=== PATIENT | female | born 1980 | race Caucasian/White ===

== ENCOUNTER 2016-10-03 19:22 | Emergency (ER) | payer OTHER ==
[~2016-10-03] VITALS: Ht 158.8 cm; Wt 118.4 kg
[~2016-10-03 19:22] MED LIST: CITA20TA4 PO; ULT50 PO
[2016-10-03 19:34] VITALS: TEMP 36.6; Ht 158.8 cm; Wt 118.4 kg
[2016-10-03] MEDS ORDERED: HYDR5SYP11 PO (19:58)
[2016-10-03] MEDS ORDERED: AZITTAB PO (19:58)
--- NOTE | 2016-10-03 19:59 | EMERGENCY ROOM VISIT NOTE ---
ED Visit Note First contact with patient: 19:41 CHIEF COMPLAINT: Cold symptoms HISTORY OF PRESENT ILLNESS: This is a 35-year-old female patient who presents to the emergency department ambulatory complaining of cough, sinus congestion, sore throat, pain in her chest only with coughing and frontal headache. The patient's symptoms started one week ago. The patient does not complain of a headache, abdominal pain, nausea, or vomiting. The patient has not had any shortness of breath. The patient does not know of anybody around them who has been sick. The patient has taken [id number] medications, Flonase, Mucinex. REVIEW OF SYSTEMS: A 10 system review of systems was completed with positives and pertinent negatives listed in the HPI. ALLERGIES: Penicillins MEDICATIONS: See nursing notes PMH: Patient denies SOCIAL HISTORY: The patient is a smoker. She lives locally PHYSICAL EXAM: Vital Signs: Reviewed Nurse's notes, temperature 36.6C orally, the remainder of the vital signs were normal. GENERAL: This is a 35-year-old female, in no acute distress, non toxic in appearance, nondiaphoretic, well-developed well-nourished. SKIN: The skin was without rashes, erythema, edema, or bruising. Capillary reflex less than 2 seconds. HEAD: Normocephalic atraumatic. EARS: External auditory canals clear, tympanic membrane pearly dodge without erythema or bulging EYES: Pupils equal round and reactive to light and accommodation. Conjunctivae without injection, sclerae without icterus. Extraocular movements intact. NOSE: Patent, turbinates inflamed with clear discharge. There is moderate frontal sinus tenderness. MOUTH: Mucous membranes moist. Tonsils are non-enlarged and not erythematous without exudate. Pharynx positive for postnasal drip. NECK: Supple without nuchal rigidity. There is no significant lymphadenopathy. HEART: Regular rate and rhythm without murmurs gallops or rubs. LUNGS: Clear to auscultation bilaterally without wheezes, rales or rhonchi. NEURO: Patient was alert and oriented to person place and time. ED COURSE: I examined the patient. the patient has had upper respiratory symptoms for the last 1 week. She has had sinus pressures, sinus congestion, sore throat, postnasal drip and cough. The patient has not had any shortness of breath or true chest pain. She is not having nuchal rigidity or meningismus to suggest meningitis. She has not had a fever. I discussed the possibility of obtaining a workup including laboratory studies and chest x-ray or trying antibiotics. The patient prefers to try medication first and she will return if she has any worsening symptoms. She also requested Hycodan cough syrup. She should follow-up with her family doctor next week. She should return with worsening symptoms. The patient was discharged home in good condition. Problem List Medical Problems: (1) Anxiety Status: Chronic (2) Bronchitis Status: Resolved (3) Bronchitis Status: Resolved (4) Bronchitis Status: Resolved (5) Sciatica Status: Chronic (6) Tobacco Use Disorder Status: Chronic (7) URI (upper respiratory infection) Status: Resolved (8) URI (upper respiratory infection) Status: Resolved (9) Viral illness Status: Resolved Surgical Problems: (1) History of hip surgery Status: Resolved (2) Hx of cholecystectomy Status: Resolved (3) S/P cholecystectomy Status: Resolved (4) Tubal ligation status Status: Resolved Current/Historical Medications Scheduled Azithromycin (Zithromax Z-Bentley), 1 PKT PO UD Citalopram Hydrobromide (Citalopram Hydrobromide), 1 TAB PO QPM Scheduled PRN Hydrocodone W/ Homatropine (Hycodan 5/1.5MG 5 Ml), 5 ML PO Q6 PRN for Cough Miscellaneous Medications Iud's (Paragard Intrauterine Intellectual Property Manager) Allergies Coded Allergies: Amoxicillin (Verified Allergy, Intermediate, HIVES, 10/03/16) PT STATES ALL "CILLINS" Penicillins (Verified Allergy, Unknown, HIVES, 10/03/16) PT STATES ALL "CILLINS" Vital Signs Date Time Temp Pulse Resp B/P Pulse Ox O2 Delivery O2 Flow Rate FiO2 10/03/16 20:13 80 18 128/51 98 10/03/16 19:34 36.6 82 18 132/85 97 Room Air Departure Information Impression Primary Impression: Upper respiratory tract infection Dispostion Home / Self-Care Condition GOOD Prescriptions Hydrocodone W/ Homatropine (HYCODAN 5/1.5MG 5 ML) 1 Syp Syp 5 ML PO Q6 Y for Cough for 3 Days, #60 ML Prov: Rowan Marvin PA-C 10/03/16 Azithromycin (ZITHROMAX Z-BENTLEY) 250 Mg Tab 1 PKT PO UD, #1 PKT Prov: Rowan Marvin PA-C 10/03/16 Referrals Pro,Madhu Bustillo M.D. (PCP) Patient Instructions Bronchitis Acute, My [facility] Additional Instructions Zithromax as prescribed, until finished Hycodan as prescribed, as needed for cough; do not drive when taking the Hycodan Follow up with your family doctor next week if no improvement Return to the emergency department with worsening symptoms Problem Qualifiers Primary Impression: Upper respiratory tract infection
[2016-10-03 20:13] VITALS: BP 128/51; PULSE 80; O2SAT 98
[2017-01-16] MEDS ORDERED: IUD'IUD INT UTER (12:04)
== END 2016-10-03 20:15 | disposition home or self-care (01) ==
LOC: C.EDB 19:24 → C.EDD 20:15
DX: J06.9 Acute upper respiratory infection, unspecified (principal); F17.200 Nicotine dependence, unspecified, uncomplicated; F41.9 Anxiety disorder, unspecified; M54.40 Lumbago with sciatica, unspecified side

== ENCOUNTER 2016-11-24 22:00 | Emergency (ER) | payer OTHER ==
[~2016-11-24] VITALS: Ht 158.8 cm; Wt 117.0 kg
[~2016-11-24 22:00] MED LIST changes: -ULT50 PO
[2016-11-24 22:09] VITALS: BP 129/89; PULSE 96; TEMP 36.6; O2SAT 97; Ht 158.8 cm; Wt 117.0 kg
[2016-11-24] MEDS ORDERED: hydrOXYzine HCL 25 MG TAB PO STA ×2 (22:40)
--- NOTE | 2016-11-24 22:42 | EMERGENCY ROOM VISIT NOTE ---
History Report prepared by Raymon: Pacheco Marcos Under the Supervision of: Dr. Madhu Villarreal D.O. First contact with patient: 22:30 Chief Complaint: ANXIETY Stated Complaint: ANXIETY ATTACK History of Present Illness The patient is a 35 year old female who presents to the Emergency Room with complaints of worsening anxiety that has been increasing over the last week. Per the patient's the patient has struggled with anxiety intermittently over the past four years. She is currently taking Ativan and Celexa. She is currently taking 0.5 of Ativan two times per day. She states that she often tries to avoid taking her Ativan and Celexa at the same time, as she becomes tired and drowsy. She also had her Celexa dosage increased yesterday by the Physician Tie Binder at Dr. Bojorquez's office. Per the ED nursing staff the patient has been experiencing increased anxiety due to legal issues at home. The patient states that the tenants that live in the apartment above her have been attempting to get her children into legal trouble. This stress has caused the worsening of her anxiety. She adamantly denies any suicidal thoughts or ideation , and claims that she feels safe at home. She does not have any guns at home, and has not consumed any alcohol this evening. She has never been admitted as an inpatient for psychiatric concerns in the past. The patient is scheduled to have a follow-up with a therapist on Sunday of next week, three days from this visit. Source of History: patient, spouse/significant other Onset: One week [employer] DEVEL[employer] Position: other (Psychiatric ) Quality: other (Anxiety ) Timing: worsening Modifying Factors (Worsening): other (Stress at home) Note: Denies suicidal ideations. Review of Systems See HPI for pertinent positives & negatives. A total of 10 systems reviewed and were otherwise negative. Past Medical & Surgical Medical Problems: (1) Anxiety (2) Bronchitis (3) Bronchitis (4) Bronchitis (5) Sciatica (6) Tobacco Use Disorder (7) URI (upper respiratory infection) (8) URI (upper respiratory infection) (9) Viral illness Surgical Problems: (1) History of hip surgery (2) Hx of cholecystectomy (3) S/P cholecystectomy (4) Tubal ligation status Family History Cancer Diabetes mellitus Gallbladder disease Heart disease Hypertension Kidney disease Kidney stones Lung disease Social History Smoking Status: Current Every Day Smoker Alcohol Use: none Drug Use: none Marital Status: in relationship Housing Status: lives with family Occupation Status: employed Current/Historical Medications Scheduled Citalopram Hydrobromide (Citalopram Hydrobromide), 1 TAB PO QPM Hydroxyzine Pamoate (Vistaril), 1 CAP PO Q8 Miscellaneous Medications Iud's (Paragard Intrauterine Mental Health Aides Teacher) Allergies Coded Allergies: Amoxicillin (Verified Allergy, Intermediate, HIVES, 10/03/16) PT STATES ALL "CILLINS" Penicillins (Verified Allergy, Unknown, HIVES, 10/03/16) PT STATES ALL "CILLINS" Physical Exam Vital Signs Date Time Temp Pulse Resp B/P (MAP) Pulse Ox O2 Delivery O2 Flow Rate FiO2 11/24/16 22:09 36.6 96 18 129/89 97 Room Air Physical Exam GENERAL: Patient is awake, alert, and mildly anxious. Comfortable, and in no pain. EYES: The conjunctivae are clear. The pupils are round and reactive. EARS, NOSE, MOUTH AND THROAT: The nose is without any evidence of any deformity. Mucous membranes are moist tongue is midline NECK: The neck is nontender and supple. RESPIRATORY: Normal respiratory effort is noted there is no evidence of wheezing rhonchi or rales CARDIOVASCULAR: Regular rate and rhythm noted there no murmurs rubs or gallops normal S1 normal S2 GASTROINTESTINAL: The abdomen is soft. Bowel sounds are present in all quadrants. Abdomen is nontender MUSCULOSKELETAL/EXTREMITIES: There is no evidence of gross deformity full range of motion is noted in the hips and shoulders SKIN: There is no obvious evidence of any rash. There are no petechiae, pallor or cyanosis noted. NEUROLOGIC: Patient is awake alert and oriented x3 strength is symmetric patellar reflexes are 2+ bilaterally PSYCH: Affect was normal. Currently denying any suicidal or homicidal ideation. Medical Decision & Procedures Medications Administered Medications (Trade) Dose Ordered Sig/Irvin Route Start Time Stop Time Status Last Admin Dose Admin Hydroxyzine HCl (Vistaril Tab) 25 mg NOW STAT PO 11/24/16 22:40 11/24/16 22:41 DC 11/24/16 22:50 25 MG Hydroxyzine HCl (Vistaril Tab) 25 mg NOW STAT PO 11/24/16 22:40 11/24/16 22:41 DC 11/24/16 22:50 25 MG ED Course 2231: The patient was evaluated in room A6. A complete history and physical examination were performed. 2239: Ordered Vistaril 25 mg PO. Medical Decision Blood pressure screening: Patient was found to have normal blood pressure on screening and does not require follow-up. Medication Reconciliation: I attest that I have personally reviewed the patient' s current medications list. Differential diagnosis: Etiologies such as mood disorder, infection, hypoglycemia, electrolyte abnormalities, cardiac sources, intracerebral event, toxicologic, neurologic, as well as others were entertained. The patient is a 35-year-old female who presented to the emergency department for an evaluation of anxiety. The patient has chronic anxiety and is currently being medicated and treated by her primary care physician. She has a follow-up appointment scheduled with a therapist this Sunday. The patient did not have any suicidal or homicidal ideation and she did not feel that she required admission at this time. She was given medications for anxiety in the emergency department. She was reevaluated by the mental health senior case manager. She was encouraged to continue all medications as prescribed and follow-up with her therapist as scheduled. She was also encouraged to call crisis or return to emergency department immediately if symptoms worsen or if need arises. Impression Primary Impression: Anxiety Scribe Attestation The scribe's documentation has been prepared under my direction and personally reviewed by me in its entirety. I confirm that the note above accurately reflects all work, treatment, procedures, and medical decision making performed by me. Departure Information Prescriptions Hydroxyzine Pamoate (VISTARIL) 25 Mg Cap 1 CAP PO Q8 for Anxiety/Agitation for 30 Days, #25 CAP Prov: Madhu Villarreal, 11/24/16 Referrals Madhu Bojorquez M.D. (PCP) Forms HOME CARE DOCUMENTATION FORM, IMPORTANT VISIT INFORMATION Patient Instructions My [facility] Additional Instructions Continue all medications as prescribed. Call crisis or return to the emergency Department immediately if symptoms change worsen or the need arises.
[2016-11-24] MEDS ORDERED: EMPTY 8 DRAM VIAL ONE (22:44)
[2016-11-24] MEDS ORDERED: HYDR25CA PO (22:46)
[2017-01-16] MEDS ORDERED: IUD'IUD INT UTER (12:04)
== END 2016-11-24 23:24 | disposition home or self-care (01) ==
LOC: C.EDB 22:01 → C.EDA 23:24
DX: F41.9 Anxiety disorder, unspecified (principal); F17.200 Nicotine dependence, unspecified, uncomplicated; Z90.49 Acquired absence of other specified parts of digestive tract; Z98.51 Tubal ligation status; Z98.890 Other specified postprocedural states; Z83.3 Family history of diabetes mellitus; Z82.49 Family history of ischemic heart disease and other diseases of the circulatory system; Z84.1 Family history of disorders of kidney and ureter; Z79.899 Other long term (current) drug therapy

== ENCOUNTER 2017-01-16 15:18 | Emergency (ER) | payer OTHER ==
[~2017-01-16] VITALS: Ht 158.8 cm; Wt 117.1 kg
[~2017-01-16 15:18] MED LIST changes: +IUD'IUD INT UTER
[2017-01-16 15:21] VITALS: TEMP 36.6; Ht 158.8 cm; Wt 117.1 kg
[2017-01-16] MEDS ORDERED: VST25HP PO (15:51)
[2017-01-16] MEDS ORDERED: CITA40TA4 PO (15:51)
[2017-01-16] MEDS ORDERED: ATV5X PO (15:51)
--- NOTE | 2017-01-16 15:57 | DIAGNOSTIC IMAGING REPORT ---
LEFT FOOT 3 VIEWS HISTORY: L foot pain COMPARISON: None. FINDINGS: There is no fracture or dislocation. Soft tissues are unremarkable. No radiopaque foreign bodies. Plantar heel spur. IMPRESSION: No fractures. Electronically signed by: Charan Brewer M.D. 01/16/2017 3:56 PM Dictated Date/Time: 01/16/2017 3:55 PM
--- NOTE | 2017-01-16 16:15 | EMERGENCY ROOM VISIT NOTE ---
History First contact with patient: 15:23 Chief Complaint: FOOT PAIN Stated Complaint: POSSIBLE BROKEN FOOT History of Present Illness The patient is a 36 year old female who presents to the Emergency Room with complaints of pain on the top of her left foot for the past week. The patient denies any known injury to the foot. The patient reports that she has been spending more time on her feet over the past few weeks. She denies any pain radiating into the ankle or leg. She also denies any recent back pain. She denies paresthesias or numbness of the foot or toes, and rates her discomfort a 6 out of 10 with weightbearing. Review of Systems 10 system review was performed and was negative except for pertinent positives and negatives as indicated in history of present illness Past Medical/Surgical History Medical Problems: (1) Anxiety (2) Bronchitis (3) Bronchitis (4) Bronchitis (5) Sciatica (6) Tobacco Use Disorder (7) URI (upper respiratory infection) (8) URI (upper respiratory infection) (9) Viral illness Surgical Problems: (1) History of hip surgery (2) Hx of cholecystectomy (3) S/P cholecystectomy (4) Tubal ligation status Family History Cancer Diabetes mellitus Gallbladder disease Heart disease Hypertension Kidney disease Kidney stones Lung disease Social History Smoking Status: Current Every Day Smoker Alcohol Use: none Drug Use: none Marital Status: in relationship Housing Status: lives with family Occupation Status: employed Current/Historical Medications Scheduled Citalopram (Citalopram Hydrobromide), 40 MG PO DAILY Iud's (Paragard Intrauterine Brake Lining Finisher Asbestos), 1 EA INT UTER UD Scheduled PRN Hydroxyzine HCl (Hydroxyzine Pamoate), 25 MG PO Q8 PRN for Anxiety/Agitation Lorazepam (Lorazepam), 0.5 MG PO BID PRN for Anxiety Physical Exam Vital Signs Date Time Temp Pulse Resp B/P (MAP) Pulse Ox O2 Delivery O2 Flow Rate FiO2 01/16/17 15:21 36.6 84 16 113/76 95 Room Air Physical Exam CONSTITUTIONAL: Healthy and well nourished. Alert and oriented X 3 with positive affect. HEENT: Normocephalic, atraumatic. Pupils equal, round and reactive. NECK: Full active range of motion without discomfort. MUSCULOSKELETAL: Examination of the left foot shows minimal edema over the distal second and third metatarsal region. Faint ecchymosis is noted. The patient has no tenderness to palpation over the plantar metatarsals. She has no focal tenderness over the ankle, calcaneus or Achilles tendon. No significant worsening pain with subtalar motion. No tenderness to palpation of the phalanges. Pedal pulses are intact. INTEGUMENTARY: No rash or other significant dermatologic conditions noted. NEUROLOGIC: Left foot and toes are sensory intact. Medical Decision & Procedures ER Provider Diagnostic Interpretation: My interpretation of left foot x-rays does not show any obvious degenerative changes, fractures, dislocations or radiopaque foreign bodies. Radiologist report is as follows: LEFT FOOT 3 VIEWS HISTORY: L foot pain COMPARISON: None. FINDINGS: There is no fracture or dislocation. Soft tissues are unremarkable. No radiopaque foreign bodies. Plantar heel spur. IMPRESSION: No fractures. ED Course Patient history and physical exam were performed. Nurse's notes were reviewed. Vital signs were reviewed and were normal. X-rays of the left foot were normal. The patient was advised that her clinical exam is most consistent with a strain. Crutches and an ice pack or dispensed. The patient was encouraged to intermittently apply ice and elevate the foot for swelling and pain. Ibuprofen or Tylenol as needed for additional pain relief. The patient was instructed to follow-up with orthopedics if symptoms have not improved within the next week. The patient was happy with plan of care, voiced understanding of all discharge instructions, and denied any significant pain at the conclusion of my exam. Medical Decision Medication Reconcilliation Current Medication List: was personally reviewed by me Blood Pressure Screening Patient's blood pressure: Normal blood pressure Impression Primary Impression: Strain of left foot Departure Information Referrals Pro,Madhu Bustillo M.D. (PCP) Patient Instructions My [facility] Problem Qualifiers Primary Impression: Strain of left foot Encounter type: initial encounter Qualified Codes: S96.912A - Strain of unspecified muscle and tendon at ankle and foot level, left foot, initial encounter
[2017-01-16 16:23] VITALS: BP 120/86; PULSE 85; O2SAT 96
== END 2017-01-16 16:23 | disposition home or self-care (01) ==
LOC: C.EDB 15:19 → C.EDD 16:23
DX: S96.912A Strain of unspecified muscle and tendon at ankle and foot level, left foot, initial encounter (principal); X58.XXXA Exposure to other specified factors, initial encounter; F41.9 Anxiety disorder, unspecified; F17.210 Nicotine dependence, cigarettes, uncomplicated; Z90.49 Acquired absence of other specified parts of digestive tract; Z98.51 Tubal ligation status; Z80.9 Family history of malignant neoplasm, unspecified; Z83.3 Family history of diabetes mellitus; Z82.49 Family history of ischemic heart disease and other diseases of the circulatory system; Z84.1 Family history of disorders of kidney and ureter; Z79.899 Other long term (current) drug therapy

== ENCOUNTER → 2017-02-28 | Outpatient (CLI) | payer OTHER ==
[~2017-02-28] MED LIST changes: +ATV5X PO; -CITA20TA4 PO; +CITA40TA4 PO; +VST25HP PO
[2017-02-28 15:31] LABS: BASO % 0.3 %; BASO ABS # 0.04 K/uL (0-0.2); COMPLETE YES; EOS % 0.5 %; HEMATOCRIT 45.2 % (37-47); IG% 0.3 %; LYMPH % 17.5 %; LYMPH ABS # 2.58 K/uL (1.2-3.4); MEAN CELL VOLUME 90.4 fL (80-100); MEAN CORPUSCULAR HEMOGLOBIN 30.6 pg (25-34); MEAN CORPUSCULAR HGB CONC 33.8 g/dl (32-36); MEAN PLATELET VOLUME 11.5 fL (7.4-10.4); MONO % 8.1 %; NEUT % 73.3 %; PLATELET COUNT 294 K/uL (130-400); WHITE BLOOD COUNT 14.71 K/uL (4.8-10.8)
[2017-02-28 16:13] LABS: URINE APPEARANCE CLEAR (CLEAR); URINE BILIRUBIN NEG (NEG); URINE COLOR YELLOW; URINE NITRITE NEG (NEG); URINE SPECIFIC GRAVITY 1.016 (1.000-1.030); UROBILINOGEN NEG (NEG)
[2017-02-28 16:34] LABS: MANUAL MICROSCOPIC REQUIRED? NO; REVIEW REQ? NO
== END | disposition home or self-care (01) ==
LOC: C.LAB1850 13:50
PROVIDERS: ATTEND Physician Assistant
DX: R10.2 Pelvic and perineal pain (principal)

== ENCOUNTER 2017-05-31 01:07 | Emergency (ER) | payer OTHER ==
[~2017-05-31] VITALS: Ht 158.8 cm; Wt 117.2 kg
[2017-05-31 01:10] VITALS: TEMP 36.5; Ht 158.8 cm; Wt 117.2 kg
[2017-05-31] MEDS ORDERED: KETOROLAC TROMETHAMINE 30 MG/ML VIAL IV STA (01:21)
[2017-05-31] MEDS ORDERED: PROCHLORPERAZINE 5 MG/ML 2 ML VIAL IV STA (01:21)
[2017-05-31] MEDS ORDERED: DiphenhydrAMINE HCL 50 MG/ML VIAL IV STA (01:21)
[2017-05-31 01:37] LABS: BASO % 0.3 %; BASO ABS # 0.03 K/uL (0-0.2); COMPLETE YES; HEMATOCRIT 42.2 % (37-47); IG% 0.2 %; LYMPH % 35.7 %; LYMPH ABS # 3.22 K/uL (1.2-3.4); MEAN CELL VOLUME 89.8 fL (80-100); MEAN CORPUSCULAR HEMOGLOBIN 30.9 pg (25-34); MEAN CORPUSCULAR HGB CONC 34.4 g/dl (32-36); MEAN PLATELET VOLUME 10.6 fL (7.4-10.4); MONO % 8.6 %; NEUT % 54.2 %; PLATELET COUNT 241 K/uL (130-400); WHITE BLOOD COUNT 9.03 K/uL (4.8-10.8)
[2017-05-31] MEDS ORDERED: CHN/1 PO (01:40)
[2017-05-31 01:58] LABS: BUN/CREATININE RATIO 15.5 (10-20); CALCIUM 8.9 mg/dl (8.5-10.1); CREATININE 0.73 mg/dl (0.60-1.20); POTASSIUM 3.8 mmol/L (3.5-5.1)
[2017-05-31 02:52] VITALS: BP 101/61; PULSE 61; O2SAT 97
--- NOTE | 2017-05-31 08:06 | DIAGNOSTIC IMAGING REPORT ---
HEAD WITHOUT CONTRAST (CT) CLINICAL HISTORY: 36 years-old Female presenting with Atypical migraine, pain along the left side of the head radiating into the. TECHNIQUE: Multidetector CT imaging of the head was performed without the use of intravenous contrast. IV contrast: None. A dose lowering technique was used consistent with the principles of ALARA (as low as reasonably achievable). COMPARISON: 11/18/2014. CT DOSE (mGy.cm): The estimated cumulative dose is 537.48 mGy.cm. FINDINGS: Barking Machine Feeder topogram: Unremarkable. Ventricles and sulci normal in size. Brain parenchyma normal in appearance with preserved dodge-white differentiation. No mass effect or midline shift. No hemorrhage or acute territorial infarct. No extra-axial fluid collection. Paranasal sinuses and mastoid air cells clear. Calvarium intact. IMPRESSION: 1. No acute intracranial abnormality. Electronically signed by: Mahamed Navarro M.D. 05/31/2017 8:05 AM Dictated Date/Time: 05/31/2017 7:09 AM
--- NOTE | 2017-05-31 23:27 | EMERGENCY ROOM VISIT NOTE ---
History First contact with patient: 01:15 Chief Complaint: HEADACHE Stated Complaint: MIGRAINE-LT SIDE,LT EYE,NAUSEA,DIZZY History of Present Illness The patient is a 36 year old female who presents to the Emergency Room with complaints of headache symptoms that began worsening over the course of the day. The patient has a history of migraine headaches, however this is atypical from her normal migraine. She states today she has some of sided head pain that radiates into her left eye. She is nauseated without vomiting. She has not had injury or trauma. No fever or chills. She did try [id number] analgesics without relief at home. This is not the worst headache of her life. She rates her discomfort an 8/10. Review of Systems More than 10 systems were reviewed and otherwise negative with the exception of history of present illness. Past Medical/Surgical History Medical Problems: (1) Anxiety (2) Bronchitis (3) Bronchitis (4) Bronchitis (5) Sciatica (6) Tobacco Use Disorder (7) URI (upper respiratory infection) (8) URI (upper respiratory infection) (9) Viral illness Surgical Problems: (1) History of hip surgery (2) Hx of cholecystectomy (3) S/P cholecystectomy (4) Tubal ligation status Family History Cancer Diabetes mellitus Gallbladder disease Heart disease Hypertension Kidney disease Kidney stones Lung disease Social History Smoking Status: Former Smoker Alcohol Use: none Drug Use: none Marital Status: in relationship Housing Status: lives with family Occupation Status: employed Current/Historical Medications Scheduled Citalopram (Citalopram Hydrobromide), 40 MG PO DAILY Iud's (Paragard Intrauterine Pharmacy Messenger), 1 INT UTER UD Varenicline (Chantix), 1 MG PO BID Physical Exam Vital Signs Date Time Temp Pulse Resp B/P (MAP) Pulse Ox O2 Delivery O2 Flow Rate FiO2 05/31/17 02:52 61 17 101/61 97 Room Air 05/31/17 01:52 68 18 121/53 95 Room Air 05/31/17 01:10 36.5 71 20 121/86 96 Room Air Physical Exam VITALS: Vitals are noted on the nurse's note and reviewed by myself. Vital signs stable. GENERAL: Well-developed, well-nourished, female, who is in no acute distress and resting comfortably. Patient is cooperative with the examination. HEAD: Normocephalic atraumatic. EARS: External ear normal. External auditory canals clear, tympanic membranes pearly dodge without erythema or effusion bilaterally. EYES: Pupils equal round and reactive to light and accommodation. Conjunctivae without injection, sclerae without icterus. Extraocular movements intact. NOSE: Patent, turbinates without inflammation or discharge. MOUTH: Mucous membranes moist. Tonsils are not enlarged. Pharynx without erythema, blood, or exudate. Uvula midline. Airway patent. NECK: Supple without nuchal rigidity. No lymphadenopathy. No thyromegaly. Cervical spine is nontender. No meningismus HEART: Regular rate and rhythm without murmurs gallops or rubs. LUNGS: Clear to auscultation bilaterally without wheezes, rales or rhonchi. No retractions or accessory muscle use. ABDOMEN: Positive normal bowel sounds x 4. Soft, nontender, without masses or organomegaly. No guarding or rebound tenderness. Medical Decision & Procedures ER Provider Diagnostic Interpretation: HEAD WITHOUT CONTRAST (CT) CLINICAL HISTORY: 36 years-old Female presenting with Atypical migraine, pain along the left side of the head radiating into the. TECHNIQUE: Multidetector CT imaging of the head was performed without the use of intravenous contrast. IV contrast: None. A dose lowering technique was used consistent with the principles of ALARA (as low as reasonably achievable). COMPARISON: 11/18/2014. CT DOSE (mGy.cm): The estimated cumulative dose is 537.48 mGy.cm. FINDINGS: Stab Setter And Driller topogram: Unremarkable. Ventricles and sulci normal in size. Brain parenchyma normal in appearance with preserved dodge-white differentiation. No mass effect or midline shift. No hemorrhage or acute territorial infarct. No extra-axial fluid collection. Paranasal sinuses and mastoid air cells clear. Calvarium intact. IMPRESSION: 1. No acute intracranial abnormality. Laboratory Results 05/31/17 01:25 Red Blood Count 4.70, Mean Corpuscular Volume 89.8, Mean Corpuscular Hemoglobin 30.9, Mean Corpuscular Hemoglobin Concent 34.4, Mean Platelet Volume 10.6, Neutrophils (%) (Auto) 54.2, Lymphocytes (%) (Auto) 35.7, Monocytes (%) (Auto) 8.6, Eosinophils (%) (Auto) 1.0, Basophils (%) (Auto) 0.3, Neutrophils # (Auto) 4.89, Lymphocytes # (Auto) 3.22, Monocytes # (Auto) 0.78, Eosinophils # (Auto) 0.09, Basophils # (Auto) 0.03 05/31/17 01:25 Test 05/31/17 01:25 White Blood Count 9.03 K/uL (4.8-10.8) Red Blood Count 4.70 M/uL (4.2-5.4) Hemoglobin 14.5 g/dL (12.0-16.0) Hematocrit 42.2 % (37-47) Mean Corpuscular Volume 89.8 fL (80-100) Mean Corpuscular Hemoglobin 30.9 pg (25-34) Mean Corpuscular Hemoglobin Concent 34.4 g/dl (32-36) Platelet Count 241 K/uL (130-400) Mean Platelet Volume 10.6 fL (7.4-10.4) Neutrophils (%) (Auto) 54.2 % Lymphocytes (%) (Auto) 35.7 % Monocytes (%) (Auto) 8.6 % Eosinophils (%) (Auto) 1.0 % Basophils (%) (Auto) 0.3 % Neutrophils # (Auto) 4.89 K/uL (1.4-6.5) Lymphocytes # (Auto) 3.22 K/uL (1.2-3.4) Monocytes # (Auto) 0.78 K/uL (0.11-0.59) Eosinophils # (Auto) 0.09 K/uL (0-0.5) Basophils # (Auto) 0.03 K/uL (0-0.2) RDW Standard Deviation 42.3 fL (36.4-46.3) RDW Coefficient of Variation 12.9 % (11.5-14.5) Immature Granulocyte % (Auto) 0.2 % Immature Granulocyte # (Auto) 0.02 K/uL (0.00-0.02) Anion Gap 5.0 mmol/L (3-11) Est Creatinine Clear Calc Drug Dose 128.1 ml/min Estimated GFR () 121.1 Estimated GFR (Non- 104.5 BUN/Creatinine Ratio 15.5 (10-20) Calcium Level 8.9 mg/dl (8.5-10.1) Total Bilirubin 0.3 mg/dl (0.2-1) Aspartate Amino Transf (AST/SGOT) 12 U/L (15-37) Alanine Aminotransferase (ALT/SGPT) 29 U/L (12-78) Alkaline Phosphatase 87 U/L (45-117) Total Protein 7.3 gm/dl (6.4-8.2) Albumin 3.6 gm/dl (3.4-5.0) Globulin 3.7 gm/dl (2.5-4.0) Albumin/Globulin Ratio 1.0 (0.9-2) Medications Administered Medications (Trade) Dose Ordered Sig/Irvin Route Start Time Stop Time Status Last Admin Dose Admin Diphenhydramine HCl (Benadryl Inj) 50 mg NOW STAT IV 05/31/17 01:21 05/31/17 01:23 DC 05/31/17 01:33 50 MG Prochlorperazine Edisylate (Compazine Inj) 10 mg NOW STAT IV 05/31/17 01:21 05/31/17 01:23 DC 05/31/17 01:36 10 MG Ketorolac Tromethamine (Toradol Inj) 30 mg NOW STAT IV 05/31/17 01:21 05/31/17 01:23 DC 05/31/17 01:33 30 MG ED Course Physical exam and history were performed. Nursing notes, EMR, and Medication List were personally reviewed. Patient appears to have headache symptoms for the past one day. She does not appear toxic, but appears uncomfortable. She was given 30 mg IV Toradol, 10 mg IV Compazine, and 50 mg IV Benadryl. She was sent to CAT scan as her symptoms are atypical of her normal migraine, and she has not had imaging in several years. The patient's blood work is as above and was reviewed. She does not have a significant elevated white blood cell count, gross anemia, bandemia, or significant electric let imbalance. Her CT scan is as above and without acute findings. On reevaluation the patient was sleeping comfortably in her emergency department aid. Her discomfort essentially completely resolved with medications and dressed here in the department. She does seem stable for discharge home. The patient needs to follow with neurology and her primary care physician. She'll be discharged home under the care of a male blow mold technician who is acting as the local hazmat driver today. The patient was pleased with this plan and rated her discomfort a 0/10 at departure. The chart was completed utilizing [employer] Speech Voice Recognition Software. Grammatical errors, random word insertions, pronoun errors, and incomplete sentences are an occasional consequence of this system due to software limitations, ambient noise, and hardware issues. Any formal questions or concerns about the content, text, or information contained within the body of this dictation should be directly addressed to the provider for clarification. . Medical Decision The differential diagnosis includes, but is not limited to: acute intracranial bleed, meningitis, encephalitis, mass or mass effect, sinusitis, infection, tumor, headache, temporal arteritis and carbon monoxide exposure, and migraine. Impression Primary Impression: Headache Departure Information Dispostion Home / Self-Care Condition GOOD Referrals Pro,Madhu Bustillo M.D. (PCP) Forms HOME CARE DOCUMENTATION FORM, IMPORTANT VISIT INFORMATION Patient Instructions My [facility] Additional Instructions You were seen and evaluated today on an emergency basis only. This is not a substitute for, or an effort to provide, complete comprehensive medical care. It is not possible to recognize and treat all injuries or illnesses in a single emergency department visit. For this reason it is recommended that you followup with your primary care physician or neurologist this week for ongoing care and evaluation. DO NOT drive, drink alcohol, operate machinery, or perform dangerous activities today. You were given medications in the ER that can affect your ability to safely function or operate a vehicle. Rest today in a quiet, peaceful, dark environment and get a full 8-10 hrs of sleep tonight. Avoid loud noises, smoke/smoking, alcohol, bright lights, stress, or physical exertion today to minimize the chance the headache may return. Continue current medications. Ibuprofen(Motrin, Advil) may be used for fever or pain. Use 600mg every six hours as needed. Take with food. Avoid using more than 2400mg in a 24 hour period. Do not use 2400mg per day for more than three consecutive days without physician direction. Prolonged inappropriate use can lead to stomach upset or ulcers. (AND/OR) Acetaminophen(Tylenol) may be used for fever or pain. Use 1000mg every six hours as needed. Avoid using more than 4000mg in a 24 hour period. Return to the ER for passing out, worsening headache, vision problems, neck stiffness/pain, fevers, vomiting, worsening of your condition, or as needed.
== END 2017-05-31 03:15 | disposition home or self-care (01) ==
LOC: C.EDB 01:08
DX: R51 Headache (principal); F41.9 Anxiety disorder, unspecified; Z87.891 Personal history of nicotine dependence; Z90.49 Acquired absence of other specified parts of digestive tract; Z98.51 Tubal ligation status; Z80.9 Family history of malignant neoplasm, unspecified; Z83.3 Family history of diabetes mellitus; Z82.49 Family history of ischemic heart disease and other diseases of the circulatory system; Z87.442 Personal history of urinary calculi; Z79.899 Other long term (current) drug therapy

== ENCOUNTER 2017-07-09 20:40 | Emergency (ER) | payer OTHER ==
[~2017-07-09] VITALS: Ht 160 cm; Wt 105.0 kg
[~2017-07-09 20:40] MED LIST changes: -ATV5X PO; +CHN/1 PO; -VST25HP PO
[2017-07-09 20:48] VITALS: TEMP 36.6; Ht 160 cm; Wt 105.0 kg
--- NOTE | 2017-07-09 21:35 | DIAGNOSTIC IMAGING REPORT ---
L KNEE 3 VIEWS CLINICAL HISTORY: left knee pain pain COMPARISON: None. DISCUSSION: The bones and joint spaces appear intact. There is no evidence of fracture, dislocation or bony disease. There is no evidence for soft tissue swelling. IMPRESSION: Negative study. The above report was generated using voice recognition software. It may contain grammatical, syntax or spelling errors. Electronically signed by: Bandar Paiz M.D. 07/09/2017 9:34 PM Dictated Date/Time: 07/09/2017 9:33 PM
[2017-07-09] MEDS ORDERED: ATV5X PO (21:39)
[2017-07-09] MEDS ORDERED: FLX/5 PO (21:39)
[2017-07-09 22:15] VITALS: BP 127/88; PULSE 99; O2SAT 97
--- NOTE | 2017-07-10 21:26 | EMERGENCY ROOM VISIT NOTE ---
ED Visit Note First contact with patient: 21:09 CHIEF COMPLAINT: knee pain HISTORY OF PRESENT ILLNESS: This 36-year-old female patient presents to the emergency department after sustaining an injury to the left knee tonight. The patient states that she was dancing with her children when she felt a popping sensation in the left knee. The patient denies any other injuries besides their knee. The patient no swelling or bruising. There is pain diffusely. They rate the pain as dull and 6/10. The patient states they are able to walk on it. No numbness or tingling. No previous injuries to this knee. No ankle, foot or hip pain. REVIEW OF SYSTEMS: A 6 system review of systems was completed with positives and pertinent negatives listed in the HPI. ALLERGIES: Penicillin MEDICATIONS: See EMR PMH: No pertinent chronic medical disease SOCIAL HISTORY: Lives at home with family PHYSICAL EXAM: Vital Signs: Reviewed Nurse's notes, vital signs stable. GENERAL : Female, no acute distress, but appears in pain, well-developed, well- nourished. MENTAL STATUS: Alert, oriented to person place and time, and cooperative. MUSCULOSKELETAL: The left knee is mildly swollen. There is no ecchymosis. There is no joint effusion present. The patient is tender anteriorly. There is no joint line tenderness. The patella does not subluxate. Range of motion is normal. Strength of the quads and hamstrings is 5/5. Anne' s is negative. Fan's and Anterior Drawer tests are negative. There is no laxity with varus and valgus stressing. The foot and toes are warm and well- perfused. Dorsalis pedis pulse 2+. Sensation to pain and light touch is intact. Capillary refill less than 2 seconds. L KNEE 3 VIEWS CLINICAL HISTORY: left knee pain pain COMPARISON: None. DISCUSSION: The bones and joint spaces appear intact. There is no evidence of fracture, dislocation or bony disease. There is no evidence for soft tissue swelling. IMPRESSION: Negative study. EMERGENCY DEPARTMENT COURSE: Physical exam and history were performed. Nursing notes and EMR were reviewed. The patient appears to have injured her left knee at home. X-rays were obtained and read by myself and radiology showing no acute fracture or dislocation. The patient was placed in an Saran wrap and given crutches. She was provided information for conservative management and asked to follow with her primary care physician or orthopedist if symptoms persist. She was otherwise invited back to the ER with any new, worsening, or concerning symptoms. Problem List Medical Problems: (1) Anxiety Status: Chronic (2) Bronchitis Status: Resolved (3) Bronchitis Status: Resolved (4) Bronchitis Status: Resolved (5) Sciatica Status: Chronic (6) Tobacco Use Disorder Status: Chronic (7) URI (upper respiratory infection) Status: Resolved (8) URI (upper respiratory infection) Status: Resolved (9) Viral illness Status: Resolved Surgical Problems: (1) History of hip surgery Status: Resolved (2) Hx of cholecystectomy Status: Resolved (3) S/P cholecystectomy Status: Resolved (4) Tubal ligation status Status: Resolved Current/Historical Medications Scheduled Citalopram (Citalopram Hydrobromide), 40 MG PO DAILY Iud's (Paragard Intrauterine Supervisor [employer]), 1 EA INT UTER UD Varenicline (Chantix), 1 MG PO BID Scheduled PRN Cyclobenzaprine HCl (Cyclobenzaprine HCl), 5 MG PO HS PRN for Muscle Spasm Lorazepam (Lorazepam), 0.5 MG PO BID PRN for Anxiety Allergies Coded Allergies: Amoxicillin (Verified Allergy, Intermediate, HIVES, 10/03/16) PT STATES ALL "CILLINS" Penicillins (Verified Allergy, Unknown, HIVES, 10/03/16) PT STATES ALL "CILLINS" Vital Signs Date Time Temp Pulse Resp B/P (MAP) Pulse Ox O2 Delivery O2 Flow Rate FiO2 07/09/17 22:15 99 16 127/88 97 07/09/17 20:48 36.6 99 16 127/88 97 Room Air Departure Information Impression Primary Impression: Injury of left knee Dispostion Home / Self-Care Condition GOOD Forms HOME CARE DOCUMENTATION FORM, IMPORTANT VISIT INFORMATION Patient Instructions My [facility] Additional Instructions You were seen and evaluated today on an emergency basis only. This is not a substitute for, or an effort to provide, complete comprehensive medical care. It is not possible to recognize and treat all injuries or illnesses in a single emergency department visit. For this reason it is recommended that you followup with your primary care physician in the next week if symptoms persist. Use your crutches the next 2-3 days For baseline pain relief you may alternate ibuprofen and acetaminophen every 4 hours for pain control. Take 600 mg ibuprofen (Advil) and then 4 hours later take 1000 mg acetaminophen (Tylenol). Do not take more than 3000 mg acetaminophen in a single day. You are welcome to return to the emergency department anytime with new, worsening, or concerning symptoms.
== END 2017-07-09 22:15 | disposition home or self-care (01) ==
LOC: C.EDB 20:41 → C.EDD 22:15
DX: S89.92XA Unspecified injury of left lower leg, initial encounter (principal); Y93.41 Activity, dancing; Z87.891 Personal history of nicotine dependence

== ENCOUNTER 2017-09-11 09:44 | Emergency (ER) | payer OTHER ==
[~2017-09-11] VITALS: Ht 158.8 cm; Wt 119.0 kg
[~2017-09-11 09:44] MED LIST changes: +ATV5X PO; +FLX/5 PO
[2017-09-11 09:49] VITALS: TEMP 36.9; Ht 158.8 cm; Wt 119.0 kg
--- NOTE | 2017-09-11 11:17 | DIAGNOSTIC IMAGING REPORT ---
L KNEE 3 VIEWS CLINICAL HISTORY: 36 years-old Female presenting with L knee pain. TECHNIQUE: Frontal, lateral, and sunrise views of the left knee were obtained. COMPARISON: 07/09/2017. FINDINGS: Moderate knee joint effusion. No acute fracture or malalignment. No patellar subluxation. No advanced degenerative change. No other radiographic soft tissue abnormality. IMPRESSION: 1. No acute osseous injury of the left knee or dense degenerative change. 2. Moderate knee joint effusion, nonspecific. Electronically signed by: Mahamed Navarro M.D. 09/11/2017 11:16 AM Dictated Date/Time: 09/11/2017 11:15 AM
[2017-09-11] MEDS ORDERED: TRAM-10 PO (11:31)
[2017-09-11 12:14] VITALS: BP 132/75; PULSE 89; O2SAT 99
--- NOTE | 2017-09-12 22:07 | EMERGENCY ROOM VISIT NOTE ---
ED Visit Note First contact with patient: 09:57 Chief Complaint: Left knee pain. History of Present Illness: Ms. Suarez is a 36-year-old white female who ambulates into the ED on crutches complaining of left knee pain. Historically patient was seen in this emergency department on July 09 when she reports her knee gave out and the day afterward she was having pain. She was initially evaluated with x-rays and no acute injuries were found. She was encouraged to follow-up with her PCP. She reports she did follow-up with her PCP and reported he wanted to do an MRI for ligamentous injury but she refused due to personal reasons. She reports since that time intermittently her knee has been given out but she has not sought medical attention. Patient reports she was standing last night in her house when she reports her knee gave out. She slipped and fell onto her left knee with her lower leg flexed behind her thigh. She reports since that time she has been having significant pain in the left knee and she reports feels like it does not go back to its normal position. Currently she places her discomfort over the anterior and posterior aspect of the knee. She describes her pain as a combination of throbbing, occasionally sharp. She rates her discomfort 6/10. Her pain is nonradiating. Her pain worsens with palpation and of the anterior and posterior knee, the last few degrees of hyperextension and pain beyond 40 of flexion. She has not identified any alleviating factors related to the pain. She reports she has not taken any medication for pain prior to arrival at the hospital. She denies any lightheaded or dizziness before the fall, striking her head or having loss of consciousness at the time of the fall and all signs of head injury after the fall. Additionally she denies back pain, hip pain, thigh pain , lower leg pain, ankle pain, leg weakness/numbness/tingling. Review of Systems: As noted above in history of present illness. 8 body systems were reviewed and found to be negative as noted above. Past Medical History: As noted above and status post unspecified hip surgery, cholecystectomy and tubal ligation. Current Medications: Citalopram, lorazepam, IUD control. Allergies to Medications: Amoxicillin. Social History: Patient is not employed; she feels safe in her home environment ; she admits to tobacco use and denies alcohol use. Physical Examination: Vital Signs: Date Time Temp Pulse Resp B/P (MAP) Pulse Ox O2 Delivery O2 Flow Rate FiO2 09/11/17 12:14 89 18 132/75 99 09/11/17 09:49 36.9 84 18 144/88 96 Room Air GENERAL: 36-year-old female in mild distress due to pain, nontoxic-appearing, afebrile and hemodynamically stable. NEUROLOGICAL: Awake, alert and oriented to person, place and time. Answering questions appropriately and following commands. Good hand eye coordination. SKIN: Warm, dry and pink. No soft tissue trauma noted. LEFT LOWER EXTREMITY: No gross bony deformity. No shortening or malrotation. No tenderness in the hip, thigh, lower leg, ankle or foot. Mild tenderness in the area surrounding the patella but no tenderness over the patella. There is mild swelling in this area but there is no open wounds, ecchymosis or erythema. There is also mild tenderness over the posterior aspect of the knee in the area of the vastus medialis tendinous attachment. I do not appreciate any ligamentous laxity of the collateral or cruciate ligament. Mild patellar apprehension. Negative ballottement test. No tenderness over the patellar tendon. No tenderness over the joint lines or the bony prominences of the knee. I do not appreciate any deformity of the hamstring tendons. Range of motion was significantly decreased due to her level of pain. With her knee stabilized she does have 5/5 muscle strength in plantarflexion and dorsiflexion of the ankle, flexion and extension, abduction and abduction and internal and external rotation of the hip. Throughout the foot the skin was warm and pink and capillary refill is brisk. Distal pulses are intact. Sensation is intact to light touch. ED Course: Patient is assessed as noted above. Patient's medication list was reviewed. Patient was offered pain medication and refused. Left Knee X-Rays: Were read by myself and the radiologist showing no acute osseous injury to the left knee or significant degenerative changes. A moderate joint effusion was noted by the radiologist. Patient was placed in a knee immobilizer and her crutches were reevaluated for appropriate size. Patient was educated about today's findings and instructed on her treatment plan ; she verbalized understanding and agreement with this plan. Clinical Impression: Left knee pain. Decision-Making: Initially my differential diagnosis I considered patellar dislocation, patellar fracture, ligamentous sprain, tenderness strain, fracture , dislocation and other causes. Disposition: Patient discharged home in stable condition accompanied by her father; prior to departure she was reassessed and subjectively reported she was feeling better and rated her discomfort 3/10. Plan: Patient was prescribed Ultram 50 mg every 6 hours as needed for moderate or severe pain and was encouraged to use 650 mg of acetaminophen or 600 mg of ibuprofen for mild pain. Patient was encouraged use ice on areas of pain and/or swelling 5-6 times a day for 30-40 minutes. Patient was encouraged to use the knee immobilizer and not weightbearing crutches for 3-6 days or until pain-free. Patient was encouraged to follow-up with [facility] orthopedics if no better in 6 or 7 days. Patient was encouraged to return to the ED for worsening/uncontrolled pain, uncontrolled swelling, leg weakness/numbness/tingling or any new/concerning symptoms.
== END 2017-09-11 12:15 | disposition home or self-care (01) ==
LOC: C.EDB 09:45
DX: M25.562 Pain in left knee (principal); Z88.8 Allergy status to other drugs, medicaments and biological substances; F17.200 Nicotine dependence, unspecified, uncomplicated